=== PATIENT | female | born 1955 | race Caucasian/White ===

== ENCOUNTER 2020-02-29 02:05 | Emergency (ER) | payer SELFPAY ==
[~2020-02-29] VITALS: Ht 160 cm; Wt 54.4 kg
--- NOTE | 2020-02-29 02:11 | NUR ---
PT BIBRA C/O PALPITATION. PER RA HEART RATE 160 BUT THEN WAS GIVEN ADENOSINE 6MG [employer] AND NOW IS 110. EMT AT BEDSIDE FOR EKG. PLACED ON MONITOR AND PULSE OX. CHANTELL. AT BEDSIDE FOR EVAL. WILL CONTINUE TO MONITOR PATIENT.
[2020-02-29] MEDS ORDERED: METOPROLOL TARTRATE 50 MG TABLET ONE (02:26)
[2020-02-29] MEDS: IV NS 0.9% 1,000 ML BAG IV ONE (02:30)
[2020-02-29] MEDS ORDERED: METOPROLOL TARTRATE 25 MG TABLET ONE (02:37)
[2020-02-29] MEDS: METOPROLOL SUCCINATE 50 MG TAB.SR.24H PO STA (02:40)
--- NOTE | 2020-02-29 02:41 | NUR ---
METOPROLOL 25MG PO GIVEN TO PT PER MD VERBAL ORDER.
[2020-02-29 02:45] LABS: BASOPHILS % (AUTO) 0.3 % (0.0-2.0); EOSINOPHILS % (AUTO) 0.6 % (0.0-6.0); HEMATOCRIT 34 % (33-45); LYMPHOCYTES # (AUTO) 1.6 /CMM (0.8-4.8); LYMPHOCYTES % (AUTO) 21.9 % (20.0-44.0); MEAN CORPUSCULAR HGB CONC 32 g/dl (31.0-36.0); MEAN CORPUSCULAR VOLUME 78 fL (82-100); MONOCYTES # (AUTO) 0.4 /CMM (0.1-1.30); MONOCYTES % (AUTO) 5.1 % (2.0-12.0); NEUTROPHILS # (AUTO) 5.2 /CMM (1.8-8.9); NEUTROPHILS % (AUTO) 72.1 % (43.0-81.0); PLATELET COUNT (AUTO) 345 /CMM (150-450); RED BLOOD CELL COUNT(AUTO) 4.36 MIL/uL (4.0-5.2); WHITE BLOOD COUNT (AUTO) 7.2 K/uL (4.3-11.0)
[2020-02-29] MEDS: METOPROLOL TARTRATE 25 MG TABLET PO ONE (02:51)
[2020-02-29] MEDS: METOPROLOL SUCCINATE 25 MG TAB.SR.24H PO SCH (02:51)
[2020-02-29 02:54] LABS: CALCIUM, SERUM 9.1 mg/dL (8.5-10.1); CARBON DIOXIDE 27 mmol/L (21-32); CHLORIDE 101 mmol/L (98-107); CREATININE 0.9 mg/dL (0.6-1.3); GLUCOSE 145 mg/dL (74-106); POTASSIUM 3.4 mmol/L (3.5-5.1); SODIUM SERUM 139 mmol/L (136-145); UREA NITROGEN, BLOOD 13 mg/dL (7-18)
--- NOTE | 2020-02-29 03:17 | NUR ---
PT AMBULATED TO RESTROOM
[2020-02-29 03:25] LABS: THYROID STIMULATING HORMONE 3.262 uIU/mL (0.358-3.74)
--- NOTE | 2020-02-29 03:42 | NUR ---
IV removed. Catheter intact and site benign. Pressure and 4x4 applied to site. No bleeding noted.
--- NOTE | 2020-02-29 03:42 | NUR ---
Patient discharged to home in stable condition. Written and verbal after care instructions given. Patient verbalizes understanding of instruction and RX. Pt picked up by son. Ambulated with steady gait. Denies palpiations or Chest Pain. VSS.
[2020-02-29 03:45] VITALS: BP 123/71
== END 2020-02-29 03:46 | disposition home or self-care (01) ==
LOC: ER 02:07
DX: I47.1 Supraventricular tachycardia (principal); R00.2 Palpitations
CPT/HCPCS: 36415; 71045; 80048; 84439; 84443; 84484; 85025; 93005 ×2; 99285; J7030